=== PATIENT | female | born 1985 | race Caucasian/White ===

== ENCOUNTER 2016-04-28 10:14 | Inpatient (IN) | payer MEDICAID ==
[~2016-04-28] VITALS: Ht 152.4 cm; Wt 61.9 kg
[2016-04-28] VITALS (7 sets, daily range): BP systolic 97–126; BP diastolic 61–75; PULSE 74–105; RESP 18–20; Ht 152.4 cm; Wt 61.9 kg
[2016-04-28] MEDS ORDERED: PRENAT PO (10:19)
--- NOTE | 2016-04-28 11:48 | RADRPT ---
PROCEDURE: US OB biophysical profile. CLINICAL INDICATION: decreased movements, leaking TECHNIQUE: Multiple sonographic images of the pelvis were obtained. The images were reviewed on a PACS workstation. COMPARISON: No prior studies are available for comparison. FINDINGS: There is a single viable intrauterine gestation. Cardiac activity is present with 152 beats per min cahto. There is a vertex presentation. The placenta is posterior. There is no evidence of placental abruption. There is a decreased amount of amniotic fluid with an JASON = 5.6 cm. Biophysical profile: movement 2/2 tone 2/2. breathing 2/2 JASON 2/2 Total 11/29 RPTAT: AA . IMPRESSION: Normal biophysical profile. Decreased amount of amniotic fluid with an JASON = 5.6 cm. . .Altaf Ayers MD, Date Time Electronically viewed and signed by .Altaf Ayers MD, MD on 04/28/2016 11:48 .S/
[2016-04-28] MEDS ORDERED: LACTATED RINGER'S 1,000 ML IV SCH (12:32)
[2016-04-28] MEDS ORDERED: IBUPROFEN 600 MG TAB PO PRN (13:00)
[2016-04-28] MEDS ORDERED: OXYTOCIN 30 UNITS/LR 500 ML IV SCH ×2 (13:00)
[2016-04-28] MEDS ORDERED: AMPICILLIN 2 GM/NS (PMX) 100 ML IV ONE (13:00)
[2016-04-28] MEDS ORDERED: BUTORPHANOL 2 MG INJ IV PRN (13:00)
[2016-04-28] MEDS ORDERED: OXYTOCIN 30 UNITS/LR 500 ML IV PRN ×2 (13:00→21:00)
[2016-04-28] MEDS ORDERED: CARBOPROST 250 MCG INJ IM PRN ×2 (13:00→21:00)
[2016-04-28] MEDS ORDERED: MISOPROSTOL 200 MCG TAB PR PRN ×2 (13:00→21:00)
[2016-04-28] MEDS ORDERED: LACTATED RINGER'S 1,000 ML IV PRN (13:00)
[2016-04-28] MEDS ORDERED: METHYLERGONOVINE 0.2 MG INJ IM PRN ×2 (13:00→21:00)
[2016-04-28 13:52] LABS: BASOPHIL # 0.1 10^3/ul (0.0-0.1); BASOPHILS % 0.4 % (0.0-2.0); EOSINOPHILS % 0.1 % (0.0-7.0); HEMATOCRIT 37.4 % (37.0-47.0); HEMOGLOBIN 12.5 g/dl (12.0-16.0); LYMPHOCYTES # 1.5 10^3/ul (0.8-2.9); LYMPHOCYTES % 9.6 % (15.0-51.0); MEAN CORPUSCULAR HEMOGLOBIN 28.7 pg (29.0-33.0); MEAN CORPUSCULAR HGB CONC 33.4 g/dl (32.0-37.0); MEAN CORPUSCULAR VOLUME 86.1 fl (82.0-101.0); MEAN PLATELET VOLUME 9.3 fl (7.4-10.4); MONOCYTE # 0.7 10^3/ul (0.3-0.9); MONOCYTES % 4.6 % (0.0-11.0); NEUTROPHIL # 13.4 10^3/ul (1.6-7.5); NEUTROPHILS % 85.3 % (39.0-77.0); PLATELET COUNT 262 10^3/UL (140-440); RED BLOOD COUNT 4.34 10^6/ul (4.20-5.40); RED CELL DISTRIBUTION WIDTH 15.1 % (11.5-14.5); UNCORRECTED WBC 15.8 10^3/ul (4.8-10.8); WHITE BLOOD COUNT 15.8 10^3/ul (4.8-10.8)
[2016-04-28 13:58] LABS: CONDITION 1; LH ANALYZER COMMENTS 1
[2016-04-28 14:04] LABS: INR 0.9; PROTIME 12.1 Sec (12.2-14.2); PT RATIO 0.9
[2016-04-28 14:05] LABS: PARTIAL THROMBOPLASTIN TIME 26.4 Sec (25.0-35.0)
[2016-04-28] MEDS ORDERED: FENTAnyl 2MCG/ML-ROPIV 0.2% 100 ML BAG EPI SCH (16:00)
[2016-04-28] MEDS ORDERED: ONDANSETRON 4 MG INJ IV PRN (16:00)
[2016-04-28] MEDS ORDERED: NALOXONE (0.4 MG/ML) INJ IV PRN (16:00)
[2016-04-28] MEDS ORDERED: EPHEDrine SULFATE 50 MG/5 ML SYG IV PRN (16:00)
[2016-04-28] MEDS ORDERED: AMPICILLIN 1 GM/NS (PMX) 50 ML IV SCH (17:00)
--- NOTE | 2016-04-28 17:19 | HP ---
Date/Time of Note Date/Time of Note DATE: 04/28/16 TIME: 17:18 OB - History Hx of Present Free Text/Dictation term preg w/ srom in labor Care: Good Care Ultrasounds: Normal mid trimester US Obstetrical Complications: None Medical Complications: None Past Family/Social History * Past Medical, Surgical, Family and Obstetric Histories reviewed from chart. OB Admission Exam Vital Signs Vital Signs Vital Signs Date Time Temp Pulse Resp B/P Pulse Ox O2 Delivery O2 Flow Rate FiO2 04/28/16 10:20 98.3 74 18 102/61 Room Air Physical Exam HEENT: WNL Heart: Rhythm Normal Lungs: Clear, Equal Abdomen: WNL Extremities: Normal Reflexes: Normal Membranes: Ruptured Accelerations: Accelerations Present Intensity: Moderate Last 72 hours Lab Results CBC & BMP 04/28/16 13:30 OB Assessment/Plan Reason for admission: active labor Plan: Expectant Management MONIKA RAMOS MD Apr 28, 2016 17:19
--- NOTE | 2016-04-28 17:20 | LDN ---
Date/Time of Note Date/Time of Note DATE: 04/28/16 TIME: 17:19 Delivery Summary term pregn and nsd Placenta Delivered: Spontaneously Meconium: none Perineum intact?: No Perineal laceration: 1 Anesthesia type: Local Estimated blood loss: 350 Sponge & Needle done & correct: Yes All needle counts correct: Yes Any foreign bodies felt in the: No Problems: MONIKA RAMOS MD Apr 28, 2016 17:20
[2016-04-28] MEDS: LIDOCAINE 1% (MPF) 30 ML INJ INJ PRN ×2 (17:33→17:59)
[2016-04-28] MEDS ORDERED: LACTATED RINGER'S 1,000 ML IV* SCH (20:46)
[2016-04-28] MEDS ORDERED: DIPHENHYDRAMINE 25 MG CAP PO PRN (21:00)
[2016-04-28] MEDS ORDERED: ZOLPIDEM 5 MG TAB PO PRN (21:00)
[2016-04-28] MEDS ORDERED: LANOLIN 7 GM TUBE TOP PRN (21:00)
[2016-04-28] MEDS ORDERED: WITCH HAZEL/GLYCERIN PAD PR PRN (21:00)
[2016-04-28] MEDS ORDERED: ACETAMINOPHEN 325 MG TAB PO PRN (21:00)
[2016-04-28] MEDS ORDERED: BENZOCAINE 20% 56 ML SPRAY TOP PRN (21:00)
[2016-04-28] MEDS ORDERED: MAGNESIUM HYDROXIDE 30ML CUP PO PRN (21:00)
[2016-04-28] MEDS ORDERED: SENNA/DOCUSATE NA (8.6MG/50MG) TAB PO PRN (21:00)
[2016-04-29] MEDS: IBUPROFEN 800 MG TAB PO SCH ×5 (00:42→23:34)
[2016-04-29] MEDS: OXYTOCIN 30 UNITS/LR 500 ML IV SCH ×2 (00:46→01:02)
[2016-04-29 04:00] VITALS: BP 90/51; PULSE 83; RESP 19
[2016-04-29 06:33] LABS: BASOPHILS % 0.3 % (0.0-2.0); EOSINOPHILS % 0.1 % (0.0-7.0); HEMATOCRIT 33.2 % (37.0-47.0); HEMOGLOBIN 11.4 g/dl (12.0-16.0); LYMPHOCYTES # 2.5 10^3/ul (0.8-2.9); LYMPHOCYTES % 14.1 % (15.0-51.0); MEAN CORPUSCULAR HEMOGLOBIN 29.3 pg (29.0-33.0); MEAN CORPUSCULAR HGB CONC 34.4 g/dl (32.0-37.0); MEAN CORPUSCULAR VOLUME 85.2 fl (82.0-101.0); MEAN PLATELET VOLUME 8.5 fl (7.4-10.4); MONOCYTE # 1.5 10^3/ul (0.3-0.9); MONOCYTES % 8.4 % (0.0-11.0); NEUTROPHIL # 13.7 10^3/ul (1.6-7.5); NEUTROPHILS % 77.1 % (39.0-77.0); PLATELET COUNT 267 10^3/UL (140-440); RED CELL DISTRIBUTION WIDTH 15.5 % (11.5-14.5); UNCORRECTED WBC 17.7 10^3/ul (4.8-10.8); WHITE BLOOD COUNT 17.7 10^3/ul (4.8-10.8)
[2016-04-29 06:45] LABS: CONDITION 1; LH ANALYZER COMMENTS 1
[2016-04-29 08:20] VITALS: BP 100/59; PULSE 87; RESP 16
--- NOTE | 2016-04-29 08:50 | DS ---
Date/Time of Note Date/Time of Note DATE: 04/29/16 TIME: 08:49 Discharge Summary Admission/Discharge Info Admit Date/Time Apr 28, 2016 at 12:28 Discharge Date/Time Final Diagnosis term preg Hospital Course unremarkable Home Meds Reported Medications Multivit/Min/Fol Ac/Iron/Pren* ( S*) 1 Tab Tab, 1 TAB PO DAILY, TAB 04/28/16 Pending Labs Laboratory Tests Test 04/28/16 10:35 04/28/16 13:30 04/29/16 06:07 Membranes Rupture POSITIVE (NEGATIVE) Activated Partial Thromboplast Time 26.4Sec (25.0-35.0) Basophils # 0.110^3/ul (0.0-0.1) 0.010^3/ul (0.0-0.1) Basophils % 0.4% (0.0-2.0) 0.3% (0.0-2.0) Blood Morphology Comment Eosinophils # 0.010^3/ul (0.0-0.5) 0.010^3/ul (0.0-0.5) Eosinophils % 0.1% (0.0-7.0) 0.1% (0.0-7.0) Hematocrit 37.4% (37.0-47.0) 33.2% (37.0-47.0) Hemoglobin 12.5g/dl (12.0-16.0) 11.4g/dl (12.0-16.0) Hepatitis B Surface Antigen NEGATIVE (NEGATIVE) INR International Normalized Ratio 0.90 Lymphocytes # 1.510^3/ul (0.8-2.9) 2.510^3/ul (0.8-2.9) Lymphocytes % 9.6% (15.0-51.0) 14.1% (15.0-51.0) Mean Corpuscular Hemoglobin 28.7pg (29.0-33.0) 29.3pg (29.0-33.0) Mean Corpuscular Hemoglobin Concent 33.4g/dl (32.0-37.0) 34.4g/dl (32.0-37.0) Mean Corpuscular Volume 86.1fl (82.0-101.0) 85.2fl (82.0-101.0) Mean Platelet Volume 9.3fl (7.4-10.4) 8.5fl (7.4-10.4) Monocytes # 0.710^3/ul (0.3-0.9) 1.510^3/ul (0.3-0.9) Monocytes % 4.6% (0.0-11.0) 8.4% (0.0-11.0) Neutrophils # 13.410^3/ul (1.6-7.5) 13.710^3/ul (1.6-7.5) Neutrophils % 85.3% (39.0-77.0) 77.1% (39.0-77.0) Nucleated Red Blood Cells # 0.010^3/ul (0.0-0.0) 0.010^3/ul (0.0-0.0) Nucleated Red Blood Cells % 0.0/100WBC (0.0-0.0) 0.0/100WBC (0.0-0.0) Platelet Count 49103^3/UL (140-440) 28667^3/UL (140-440) Prothrombin Time 12.1Sec (12.2-14.2) Prothrombin Time Ratio 0.9 Rapid Plasma Reagin NONREACTIVE (NR) Red Blood Count 4.3410^6/ul (4.20-5.40) 3.9010^6/ul (4.20-5.40) Red Cell Distribution Width 15.1% (11.5-14.5) 15.5% (11.5-14.5) White Blood Count 15.810^3/ul (4.8-10.8) 17.710^3/ul (4.8-10.8) MONIKA RAMSO MD Apr 29, 2016 08:50
--- NOTE | 2016-04-29 08:51 | PD.PPDC ---
SOLUTION LEAD Discharge Instruction Condition Patient Condition: Good Diet Diet: Resume Regular Diet Activity/Restrictions Activity: Normal Activity May Shower Restrictions: No Exercising No Lifting No Driving No Sexual Activity Nothing in the Vagina No [place] No Tampons, douche Wound/Drain Care Instructions Wound/Drain Care Instructions: Wash with soap and water Keep clean and dry Follow-up Follow-up with Physician: 3, Week/Weeks Return to clinic for REVENUE MANAGER Instructions: Fever greater than 101 Chills Worsening abdominal pain Excessive Vaginal Bleeding More than 2 pads per hour Unable to tolerate diet OB Instructions: Breast Tenderness Depression Blurried Vision Headache Surgical Instructions: Incisional Drainage Incisional Redness MONIKA RAMOS MD Apr 29, 2016 08:50
[2016-04-29] MEDS: ACETAMINOPHEN/CODEINE #3 TAB PO PRN (09:43)
[2016-04-29 12:10] VITALS: BP 89/53; RESP 16
[2016-04-29 16:00] VITALS: BP 99/63; PULSE 84; RESP 17
[2016-04-29] MEDS ORDERED: INFLUENZA VIRUS VACCINE 0.5 ML SYG IM* ONE (16:30)
[2016-04-29 20:00] VITALS: BP 100/68; PULSE 80; RESP 18
[2016-04-30 03:42] VITALS: BP 95/65; PULSE 82; RESP 18
[2016-04-30] MEDS: IBUPROFEN 800 MG TAB PO SCH ×2 (06:00→12:11)
[2016-04-30 07:45] VITALS: BP 93/66; PULSE 80; RESP 17
[2016-04-30] MEDS ORDERED: VARICELLA VACCINE LIVE/PF 1,350 UNIT/0.5 ML ML SC* ONE (09:00)
[2016-04-30] MEDS ORDERED: MEASLES,MUMPS,RUBELLA VACCINE INJ SC* ONE (09:00)
[2016-04-30] MEDS ORDERED: DIPHTH/TET/ACEL PERTUSS (ADULT) 0.5 ML VIAL IM* ONE (09:00)
[2016-04-30] MEDS: ACETAMINOPHEN/CODEINE #3 TAB PO PRN (10:01)
--- NOTE | 2016-04-30 13:03 | DS ---
Date/Time of Note Date/Time of Note DATE: 04/30/16 TIME: 13:01 Obstetrical Discharge Record Final Diagnosis Final Diagnosis: Term delivered Vaginal Delivery Obstetrical Delivery: Spontaneous Condition on Discharge Physical Assessment Last Vitals: Post day Current Medications Medications (Trade) Dose Ordered Sig/Michelle Route PRN Reason Start Time Stop Time Status Last Admin Dose Admin Lactated Ringer's 1,000 ml @ 125 mls/hr Q8H IV 04/28/16 12:32 04/28/16 20:49 DC 04/28/16 13:30 Ampicillin 100 ml @ 100 mls/hr ONCE ONCE IV 04/28/16 13:00 04/28/16 13:59 DC 04/28/16 13:33 Ampicillin (Ampicillin 1 Gm/ NS (Pmx)) 50 ml @ 100 mls/hr Q4H IV 04/28/16 17:00 04/28/16 20:49 DC Butorphanol Tartrate (Stadol) 2 mg Q2H PRN IV PAIN 04/28/16 13:00 04/28/16 20:49 DC Lidocaine 30 ml 30 ml ONCE PRN INJ EPISIOTOMY/TEARING 04/28/16 13:00 04/28/16 20:50 DC 04/28/16 17:33 Oxytocin/Lactated Ringer's 500 ml @ 125 mls/hr ONCE -MAY REPEAT X1 IV 04/28/16 13:00 04/28/16 20:50 DC 04/28/16 17:34 Oxytocin/Lactated Ringer's 500 ml @ 125 mls/hr ONCE IV 04/28/16 13:00 04/28/16 20:50 DC Ibuprofen 600 mg 600 mg ONCE PRN PO Mild Pain (Pain Score 1-3) 04/28/16 13:00 04/28/16 20:50 DC Lactated Ringer's 1,000 ml @ 2,000 mls/hr Q30M PRN IV PRE-EPIDURAL BOLUS 04/28/16 13:00 04/28/16 20:50 DC Oxytocin/Lactated Ringer's 500 ml @ 0 mls/hr ONCE PRN IV For Hemorrhage Management 04/28/16 13:00 04/28/16 20:50 DC Methylergonovine Maleate (Methergine) 0.2 mg ONCE PRN IM VAGINAL BLEEDING 04/28/16 13:00 04/28/16 20:50 DC Carboprost Tromethamine (Hemabate) 250 mcg ONCE PRN IM VAGINAL BLEEDING 04/28/16 13:00 04/28/16 20:50 DC Misoprostol (Cytotec) 1,000 mcg ONCE PRN ND VAGINAL BLEEDING 04/28/16 13:00 04/28/16 20:50 DC Naloxone HCl (Narcan) 0.1 mg Q2M PRN IV FOR RESP RATE 8 OR LESS 04/28/16 16:00 04/28/16 20:49 DC Ondansetron HCl (Zofran Inj) 4 mg Q6H PRN IV NAUSEA AND/OR VOMITING 04/28/16 16:00 04/28/16 20:49 DC Fentanyl/ Ropivacaine 100 ml EPIDURAL INFUSION EPI 04/28/16 16:00 04/28/16 20:49 DC Ephedrine Sulfate 5 mg 5 mg PRN PRN IV BLOOD PRESSURE SUPPORT 04/28/16 16:00 04/28/16 20:49 DC Oxytocin/Lactated Ringer's 500 ml @ 125 mls/hr Q4H IV 04/28/16 20:46 04/29/16 01:05 DC Lactated Ringer's (Lr) 1,000 ml @ 125 mls/hr Q8H IV* 04/28/16 20:46 04/29/16 01:05 DC Ibuprofen (Motrin) 800 mg Q6 PO 04/29/16 00:00 04/30/16 12:11 Acetaminophen/ Codeine Phosphate (Tylenol No.3) 2 tab Q4H PRN PO PAIN LEVEL 6-10 04/28/16 21:00 04/30/16 10:01 Diphenhydramine HCl (Benadryl) 25 mg Q6H PRN PO PRURITUS 04/28/16 21:00 Zolpidem Tartrate (Ambien) 10 mg QHS PRN PO INSOMNIA 04/28/16 21:00 Senna/Docusate Sodium (Senokot-S) 1 tab BID PRN PO CONSTIPATION 04/28/16 21:00 Magnesium Hydroxide (Milk Of Mag) 30 ml Q12H PRN PO CONSTIPATION 04/28/16 21:00 Witch Erika/ Glycerin (Tucks Pads) 1 pad BEDSIDE MEDICATION PRN ND HEMORRHOID/EPISIOTMY PAIN 04/28/16 21:00 Benzocaine (Dermoplast [place]) 1 spray BEDSIDE MEDICATION PRN TOP HEMORRHOID/EPISIOTMY PAIN 04/28/16 21:00 Lanolin ([id number]) 1 applic BEDSIDE MEDICATION PRN TOP BEDSIDE FOR SUNNY TO NIPPLES 04/28/16 21:00 Measles/Mumps/ Rubella Vaccine Live (Mmr Ii Vaccine) 0.5 ml ONCE ONCE SC* 04/30/16 09:00 04/30/16 09:01 DC Diphtheria/ Tetanus/Acell Pertussis (Adacel) 0.5 ml ONCE ONCE IM* 04/30/16 09:00 04/30/16 09:01 DC 04/30/16 12:12 Varicella Virus Vaccine Live (Varivax Vaccine With Diluent) 1,350 unit ONCE ONCE SC* 04/30/16 09:00 04/30/16 09:01 DC Acetaminophen 650 mg 650 mg Q4H PRN PO ELEVATED TEMPERATURE 04/28/16 21:00 Oxytocin/Lactated Ringer's 500 ml @ 0 mls/hr ONCE PRN IV For Hemorrhage Management 04/28/16 21:00 Methylergonovine Maleate (Methergine) 0.2 mg ONCE PRN IM VAGINAL BLEEDING 04/28/16 21:00 Carboprost Tromethamine (Hemabate) 250 mcg ONCE PRN IM VAGINAL BLEEDING 04/28/16 21:00 Misoprostol (Cytotec) 1,000 mcg ONCE PRN ND VAGINAL BLEEDING 04/28/16 21:00 Influenza Virus Vaccine (Fluzone) 0.5 ml ONCE ONCE IM* 05/01/16 09:00 05/01/16 09:01 Cancel Influenza Virus Vaccine (Fluzone) 0.5 ml ONCE ONCE IM* 04/29/16 16:30 04/29/16 16:31 DC 04/29/16 18:06 Patient is doing well, Ambulatory She is afebrile Abdomen is soft , Fundus is firm Moderate amount of lochia Breasts are soft, Nipples are intact No calf tenderness. Perineum is healing well. Breast feeding the new born. Voiding: Yes Bowel Movement: Yes Breast: Soft, non-tender Fundus: Firm Calf Tenderness: No Patient Condition: Good NALLELY GREEN MD Apr 30, 2016 13:03
[2016-05-01] MEDS ORDERED: INFLUENZA VIRUS VACCINE 0.5 ML SYG IM* ONE (09:00)
== END 2016-04-30 16:21 | disposition home or self-care (01) | DRG 775 ==
LOC: OBT 10:14 → L-D 10:15 → OBT 12:04 → L-D 12:28 → PP1 19:54
PROVIDERS: ADMIT Obstetrics & Gynecology; ATTEND Obstetrics & Gynecology
PROC: 10E0XZZ Delivery of Products of Conception, External Approach (ICD-10-PCS; principal; 2016-04-28)
PROC: 0HQ9XZZ Repair Perineum Skin, External Approach (ICD-10-PCS; 2016-04-28)
DX: O70.0 First degree perineal laceration during delivery (principal); Z37.0 Single live birth; Z3A.39 39 weeks gestation of pregnancy
CPT/HCPCS: 62319; 76818; 84112; 85025; 85610; 85730; 86592; 86900; 86901; 87340; 90686; 90715; 90716; G0463; J0290; J2590; J3010; J7120